=== PATIENT | male | born 1965 | race Native Hawaiian/Other Pacific Islander ===

== ENCOUNTER 2016-08-25 08:11 | Outpatient (CLI) | payer OTHER ==
[2016-08-25 08:43] LABS: PLATELET COUNT 222 K/uL (142-355)
== END 2016-08-25 19:17 | disposition home or self-care (01) ==
LOC: LABW 08:11
PROVIDERS: Internal Medicine
DX: E11.9 Type 2 diabetes mellitus without complications (principal)
CPT/HCPCS: 36415; 80053; 80061; 81000; 82043; 82570; 83036; 84550; 85027

== ENCOUNTER 2017-03-23 08:33 | Outpatient (CLI) | payer OTHER ==
[2017-03-23 08:55] LABS: PLATELET COUNT 211 K/uL (142-355)
[2017-03-23 10:34] LABS: POTASSIUM 4.1 mmol/L (3.6-5.2)
== END 2017-03-23 09:45 | disposition home or self-care (01) ==
LOC: LABW 08:33
PROVIDERS: Internal Medicine
DX: E11.9 Type 2 diabetes mellitus without complications (principal)
CPT/HCPCS: 36415; 80053; 80061; 81000; 82043; 82570; 83036; 84443; 84550; 85027

== ENCOUNTER 2018-03-31 08:42 | Outpatient (CLI) | payer OTHER ==
[2018-03-31 09:02] LABS: PLATELET COUNT 196 K/uL (142-355)
[2018-03-31 09:19] LABS: POTASSIUM 3.9 mmol/L (3.6-5.2)
== END 2018-03-31 19:30 | disposition home or self-care (01) ==
LOC: LABW 08:42
PROVIDERS: Internal Medicine
DX: E11.9 Type 2 diabetes mellitus without complications (principal)
CPT/HCPCS: 36415; 80053; 80061; 81000; 82043; 82570; 83036; 84439; 84443; 84550; 85027

== ENCOUNTER 2018-10-12 08:46 | Outpatient (CLI) | payer OTHER ==
[2018-10-12 09:15] LABS: PLATELET COUNT 238 K/uL (142-355)
[2018-10-12 10:07] LABS: POTASSIUM 4.1 mmol/L (3.6-5.2)
== END 2018-10-12 21:01 | disposition home or self-care (01) ==
LOC: LABW 08:46
PROVIDERS: Internal Medicine
DX: E11.9 Type 2 diabetes mellitus without complications (principal); M10.9 Gout, unspecified
CPT/HCPCS: 36415; 80053; 80061; 81000; 83036; 84439; 84443; 84550; 85027

== ENCOUNTER 2020-03-08 13:09 | Outpatient (CLI) | payer OTHER ==
[2020-03-08 13:44] LABS: PLATELET COUNT 229 K/uL (142-355)
[2020-03-08 14:04] LABS: POTASSIUM 4.7 mmol/L (3.6-5.2)
== END 2020-03-08 20:38 | disposition home or self-care (01) ==
LOC: LAB 13:09
PROVIDERS: Internal Medicine
DX: E11.9 Type 2 diabetes mellitus without complications (principal); M10.9 Gout, unspecified; I10 Essential (primary) hypertension; E78.00 Pure hypercholesterolemia, unspecified
CPT/HCPCS: 80053; 80061; 81000; 82043; 82570; 83036; 84439; 84443; 84550; 85027

== ENCOUNTER 2021-11-19 07:58 | Inpatient (IN) | payer OTHER ==
[~2021-11-19] VITALS: Ht 172.7 cm; Wt 131.7 kg
[2021-11-19 08:02] VITALS: BP 191/99; TEMP 98.2
[2021-11-19 08:31] LABS: PLATELET COUNT 220 K/uL (142-355)
[2021-11-19 08:37] LABS: POTASSIUM 3.9 mmol/L (3.6-5.2)
[2021-11-19 08:51] LABS: PARTIAL THROMBOPLASTIN TIME 27.4 SECONDS (24.5-33.6)
[2021-11-19 09:28] VITALS: BP 139/59
[2021-11-19 11:44] VITALS: BP 109/80; TEMP 97.8; Ht 172.7 cm; Wt 131.7 kg
[2021-11-19 12:00] VITALS: BP 109/80; TEMP 97.8
[2021-11-19] MEDS ORDERED: PRAVASTATIN10 MG PO (12:04)
[2021-11-19] MEDS ORDERED: LOPRESSOR100 MG PO (12:05)
[2021-11-19] MEDS ORDERED: CLONIDINE HYDR0.1 M2 PO (12:06)
[2021-11-19] MEDS ORDERED: ZESTRIL40 MG PO (12:08)
[2021-11-19] MEDS ORDERED: AMLODIPINE BESYLATE PO (12:09)
[2021-11-19] MEDS ORDERED: ALLO300T23 PO (12:09)
[2021-11-19] MEDS ORDERED: NOVOLOG100 UNIT/M SC (12:10)
[2021-11-19] MEDS ORDERED: INSUINJ8 SC (12:11)
[2021-11-19] MEDS ORDERED: COLCHICINE0.6 M1 PO (12:13)
[2021-11-19 16:02] VITALS: BP 128/52; TEMP 97.4
[2021-11-19 20:00] VITALS: BP 180/98; TEMP 98.4
== END 2021-11-19 22:35 | disposition short-term general hospital (02) | DRG 64 ==
LOC: ED 07:58 → MED/SURG 10:30
PROVIDERS: Emergency Medicine; ADMIT Internal Medicine; ATTEND Internal Medicine
DX: I63.432 Cerebral infarction due to embolism of left posterior cerebral artery (principal); J18.8 Other pneumonia, unspecified organism; N17.8 Other acute kidney failure; N18.4 Chronic kidney disease, stage 4 (severe); R53.1 Weakness; I25.10 Atherosclerotic heart disease of native coronary artery without angina pectoris; E78.49 Other hyperlipidemia; Z86.73 Personal history of transient ischemic attack (TIA), and cerebral infarction without residual deficits; M10.9 Gout, unspecified; R42 Dizziness and giddiness; W18.39XA Other fall on same level, initial encounter; Y92.89 Other specified places as the place of occurrence of the external cause; E11.22 Type 2 diabetes mellitus with diabetic chronic kidney disease; I12.9 Hypertensive chronic kidney disease with stage 1 through stage 4 chronic kidney disease, or unspecified chronic kidney disease
CPT/HCPCS: 80053; 84484; 85027; 85610; 85730; 87635; 93005; 99283; U0003

== ENCOUNTER 2021-11-25 09:03 | Inpatient (IN) | payer OTHER ==
[~2021-11-25 09:03] MED LIST: ALLO300T23 PO; AMLODIPINE BESYLATE PO; CLONIDINE HYDR0.1 M2 PO; COLCHICINE0.6 M1 PO; INSUINJ8 SC; LOPRESSOR100 MG PO; NOVOLOG100 UNIT/M SC; PRAVASTATIN10 MG PO; ZESTRIL40 MG PO
== END 2021-12-15 09:12 | disposition still patient (30) ==
LOC: PAVC 09:03
PROVIDERS: ADMIT Internal Medicine; ATTEND Internal Medicine
DX: I63.9 Cerebral infarction, unspecified (principal); J18.9 Pneumonia, unspecified organism; M62.81 Muscle weakness (generalized); R26.2 Difficulty in walking, not elsewhere classified; R26.81 Unsteadiness on feet; R27.9 Unspecified lack of coordination; Z74.1 Need for assistance with personal care; I69.351 Hemiplegia and hemiparesis following cerebral infarction affecting right dominant side
CPT/HCPCS: 87081; G0283-GO; G0283-GP

== ENCOUNTER 2022-01-15 15:31 | Inpatient (IN) | payer OTHER | END 2022-02-14 10:40 | disposition still patient (30) | LOC: PAVC 15:31 | PROVIDERS: ADMIT Internal Medicine; ATTEND Internal Medicine | DX: I63.9 Cerebral infarction, unspecified (principal); J18.9 Pneumonia, unspecified organism; M62.81 Muscle weakness (generalized); R26.2 Difficulty in walking, not elsewhere classified; R26.81 Unsteadiness on feet; R27.9 Unspecified lack of coordination; Z74.1 Need for assistance with personal care; I69.351 Hemiplegia and hemiparesis following cerebral infarction affecting right dominant side | CPT/HCPCS: G0283-GP ==

== ENCOUNTER 2022-02-14 14:54 | Inpatient (IN) | payer OTHER | END 2022-03-17 12:16 | disposition still patient (30) | LOC: PAVC 14:54 | PROVIDERS: ADMIT Internal Medicine; ATTEND Internal Medicine | CPT/HCPCS: 80069; 87502; G0283-GP ==

== ENCOUNTER 2022-02-19 07:28 | Emergency (ER) | payer OTHER ==
[~2022-02-19] VITALS: Ht 172.7 cm; Wt 131.5 kg
[2022-02-19 07:28] VITALS: TEMP 97.1
[2022-02-19 08:11] LABS: PLATELET COUNT 177 K/uL (142-355)
[2022-02-19 08:14] LABS: POTASSIUM 3.9 mmol/L (3.6-5.2)
[2022-02-19 10:43] VITALS: BP 149/81
== END 2022-02-19 10:44 | disposition home or self-care (01) ==
LOC: ED 07:28
PROVIDERS: Emergency Medicine Emergency Medical Services
DX: R11.2 Nausea with vomiting, unspecified (principal); N18.9 Chronic kidney disease, unspecified; E11.65 Type 2 diabetes mellitus with hyperglycemia; Z79.4 Long term (current) use of insulin; I10 Essential (primary) hypertension; I69.954 Hemiplegia and hemiparesis following unspecified cerebrovascular disease affecting left non-dominant side; E66.01 Morbid (severe) obesity due to excess calories
CPT/HCPCS: 80053; 81002; 82150; 83690; 83735; 84484; 85027; 93005; 96360; 96374; 96375; 99284; J2405; J3490

== ENCOUNTER 2022-03-04 09:05 | Outpatient (CLI) | payer OTHER | END 2022-03-04 19:28 | disposition home or self-care (01) | LOC: US 09:05 | PROVIDERS: ATTEND Internal Medicine | DX: E11.9 Type 2 diabetes mellitus without complications (principal); N18.4 Chronic kidney disease, stage 4 (severe) ==

== ENCOUNTER 2022-03-17 14:20 | Inpatient (IN) | payer OTHER | END 2022-04-16 15:33 | disposition still patient (30) | LOC: PAVC 14:20 | PROVIDERS: ADMIT Internal Medicine; ATTEND Internal Medicine ==

== ENCOUNTER 2022-04-16 16:25 | Inpatient (IN) | payer OTHER ==
[2022-04-18] MEDS ORDERED: POLYETHYLE17 GM/SCO1 PO (09:40)
[2022-04-18] MEDS ORDERED: EQ STOOL SOFTE100 MG PO (09:41)
[2022-04-18] MEDS ORDERED: CEPHALEXIN500 MG PO (09:44)
[2022-04-18] MEDS ORDERED: HYDRALAZINE25 MG PO (09:48)
[2022-04-18] MEDS ORDERED: MILK OF MAGNESI1 SU1 PO (09:53)
[2022-04-18] MEDS ORDERED: ONDANSETRON4 M2 PO (09:55)
[2022-04-18] MEDS ORDERED: MUPI2OIN2 TOP (09:58)
[2022-04-18] MEDS ORDERED: ADULT ASPIRIN R81 MG PO (09:59)
[2022-04-18] MEDS ORDERED: LIPITOR80 MG PO (09:59)
== END 2022-05-17 10:56 | disposition still patient (30) ==
LOC: PAVC 16:25
PROVIDERS: ADMIT Internal Medicine; ATTEND Internal Medicine

== ENCOUNTER 2022-04-17 22:53 | Observation (INO) | payer OTHER ==
[~2022-04-17] VITALS: Ht 172.7 cm; Wt 121.8 kg
[2022-04-17 23:00] VITALS: BP 155/88; TEMP 97.8
[2022-04-18] VITALS: BP 163/94; TEMP 97.6
[2022-04-18 00:25] LABS: PLATELET COUNT 192 K/uL (142-355)
[2022-04-18 00:26] LABS: POTASSIUM 3.8 mmol/L (3.6-5.2)
[2022-04-18 07:38] VITALS: BP 148/87; TEMP 97.5; Ht 172.7 cm; Wt 121.8 kg
[2022-04-18 08:00] VITALS: BP 165/75; TEMP 98.4
[2022-04-18 08:28] LABS: PLATELET COUNT 189 K/uL (142-355)
[2022-04-18 08:41] LABS: POTASSIUM 3.9 mmol/L (3.6-5.2)
[2022-04-18] MEDS ORDERED: POLYETHYLE17 GM/SCO1 PO (09:40)
[2022-04-18] MEDS ORDERED: EQ STOOL SOFTE100 MG PO (09:41)
[2022-04-18] MEDS ORDERED: CEPHALEXIN500 MG PO (09:44)
[2022-04-18] MEDS ORDERED: HYDRALAZINE25 MG PO (09:48)
[2022-04-18] MEDS ORDERED: MILK OF MAGNESI1 SU1 PO (09:53)
[2022-04-18] MEDS ORDERED: ONDANSETRON4 M2 PO (09:55)
[2022-04-18] MEDS ORDERED: MUPI2OIN2 TOP (09:58)
[2022-04-18] MEDS ORDERED: LIPITOR80 MG PO (09:59)
[2022-04-18] MEDS ORDERED: ADULT ASPIRIN R81 MG PO (09:59)
[2022-04-18 12:00] VITALS: BP 173/76; TEMP 98.9
[2022-04-18 16:00] VITALS: BP 152/67; TEMP 98.4
[2022-04-18 20:00] VITALS: BP 172/79; TEMP 98.5
[2022-04-19 04:00] VITALS: BP 154/80; TEMP 97.8
[2022-04-19 05:50] LABS: PLATELET COUNT 180 K/uL (142-355); POTASSIUM 3.9 mmol/L (3.6-5.2)
[2022-04-19 08:00] VITALS: BP 180/83; TEMP 97.83
[2022-04-19 11:42] VITALS: BP 180/81; TEMP 98.3
== END 2022-04-19 13:10 ==
LOC: ED 22:53 → MED/SURG 04-18 00:40
PROVIDERS: Internal Medicine; ADMIT Family Medicine; ATTEND Internal Medicine
DX: R11.2 Nausea with vomiting, unspecified (principal); R11.15 Cyclical vomiting syndrome unrelated to migraine; E78.49 Other hyperlipidemia; M10.9 Gout, unspecified; Z86.73 Personal history of transient ischemic attack (TIA), and cerebral infarction without residual deficits; E83.42 Hypomagnesemia; D72.818 Other decreased white blood cell count; E11.22 Type 2 diabetes mellitus with diabetic chronic kidney disease; E11.65 Type 2 diabetes mellitus with hyperglycemia; I12.9 Hypertensive chronic kidney disease with stage 1 through stage 4 chronic kidney disease, or unspecified chronic kidney disease; N18.32 Chronic kidney disease, stage 3b; N17.8 Other acute kidney failure
CPT/HCPCS: 36415; 80048; 80053; 82150; 82948; 83605; 83690; 83735; 84100; 85027; 87635; 96360; 96361; 96367; 96372; 96374; 96375; 99220; 99284; G0378; J1650; J1815; J2765; J3475; J3490; U0003

== ENCOUNTER 2022-05-17 14:32 | Inpatient (IN) | payer OTHER ==
[~2022-05-17 14:32] MED LIST changes: +ADULT ASPIRIN R81 MG PO; +CEPHALEXIN500 MG PO; +EQ STOOL SOFTE100 MG PO; +HYDRALAZINE25 MG PO; +LIPITOR80 MG PO; +MILK OF MAGNESI1 SU1 PO; +MUPI2OIN2 TOP; +ONDANSETRON4 M2 PO; +POLYETHYLE17 GM/SCO1 PO
== END 2022-06-17 09:29 | disposition still patient (30) ==
LOC: PAVC 14:32
PROVIDERS: ADMIT Internal Medicine; ATTEND Internal Medicine

== ENCOUNTER 2022-05-18 11:20 | Outpatient (CLI) | payer OTHER ==
[2022-05-18 12:13] LABS: PLATELET COUNT 149 K/uL (142-355)
[2022-05-18 12:38] LABS: POTASSIUM 3.8 mmol/L (3.6-5.2)
== END 2022-05-18 19:07 | disposition home or self-care (01) ==
LOC: LAB 11:20
PROVIDERS: ATTEND Internal Medicine
DX: I12.9 Hypertensive chronic kidney disease with stage 1 through stage 4 chronic kidney disease, or unspecified chronic kidney disease (principal); N18.4 Chronic kidney disease, stage 4 (severe); E11.9 Type 2 diabetes mellitus without complications
CPT/HCPCS: 80053; 80061; 83036; 85027

== ENCOUNTER 2022-06-17 12:34 | Inpatient (IN) | payer OTHER | END 2022-07-15 15:22 | disposition still patient (30) | LOC: PAVC 12:34 | PROVIDERS: ADMIT Internal Medicine; ATTEND Internal Medicine ==

== ENCOUNTER 2022-07-15 16:19 | Inpatient (IN) | payer OTHER | END 2022-08-15 12:53 | disposition still patient (30) | LOC: PAVC 16:19 | PROVIDERS: ADMIT Internal Medicine; ATTEND Internal Medicine ==

== ENCOUNTER 2022-08-15 13:29 | Inpatient (IN) | payer OTHER | END 2022-09-14 16:44 | disposition still patient (30) | LOC: PAVC 13:29 | PROVIDERS: ADMIT Internal Medicine; ATTEND Internal Medicine ==

== ENCOUNTER 2022-08-17 11:03 | Outpatient (CLI) | payer OTHER | END 2022-08-17 20:20 | disposition home or self-care (01) | LOC: LAB 11:03 | PROVIDERS: ATTEND Internal Medicine | DX: E11.9 Type 2 diabetes mellitus without complications (principal) | CPT/HCPCS: 83036 ==

== ENCOUNTER 2022-09-14 17:54 | Inpatient (IN) | payer OTHER | END 2022-10-15 12:21 | disposition still patient (30) | LOC: PAVC 17:54 | PROVIDERS: ADMIT Internal Medicine; ATTEND Internal Medicine ==

== ENCOUNTER 2022-10-15 12:35 | Inpatient (IN) | payer OTHER | END 2022-11-14 17:43 | disposition still patient (30) | LOC: PAVC 12:35 | PROVIDERS: ADMIT Internal Medicine; ATTEND Internal Medicine ==

== ENCOUNTER 2022-11-16 09:35 | Outpatient (CLI) | payer OTHER ==
[2022-11-16 09:38] LABS: PLATELET COUNT 188 K/uL (142-355)
[2022-11-16 09:51] LABS: POTASSIUM 4.1 mmol/L (3.6-5.2)
== END 2022-11-16 19:26 | disposition home or self-care (01) ==
LOC: LAB 09:35
PROVIDERS: ATTEND Internal Medicine
DX: E11.9 Type 2 diabetes mellitus without complications (principal); I10 Essential (primary) hypertension
CPT/HCPCS: 36415; 80053; 80061; 83036; 85027

== ENCOUNTER 2022-11-20 00:31 | Outpatient (CLI) | payer OTHER | END 2022-11-20 18:50 | disposition home or self-care (01) | LOC: LAB 00:31 | PROVIDERS: ATTEND Internal Medicine | DX: R19.5 Other fecal abnormalities (principal) | CPT/HCPCS: 82272 ==

== ENCOUNTER 2022-11-30 06:08 | Outpatient (CLI) | payer OTHER ==
[2022-11-30 06:26] LABS: PLATELET COUNT 168 K/uL (142-355)
== END 2022-11-30 19:09 | disposition home or self-care (01) ==
LOC: LAB 06:08
PROVIDERS: ATTEND Internal Medicine
DX: R79.89 Other specified abnormal findings of blood chemistry (principal)
CPT/HCPCS: 85027